=== PATIENT | female | born 1985 | race Caucasian/White ===

== ENCOUNTER 2018-12-22 08:09 | Inpatient (IN) | payer MEDICAID ==
[~2018-12-22] VITALS: Ht 160 cm; Wt 108.9 kg
[2018-12-22] MEDS ORDERED: LACTATED RINGERS 1,000 ML IV SCH (08:30)
[2018-12-22] MEDS: LACTATED RINGERS 1,000 ML IV SCH (09:00)
[2018-12-22] MEDS ORDERED: DEXT 5%/LR + PITOCIN 20UNITS/L 1,000 ML IV SCH (10:03)
[2018-12-22] MEDS ORDERED: NALOXONE HCL 0.4 MG/ML 1ML VIAL IM PRN (10:15)
[2018-12-22] MEDS ORDERED: METHYLERGONOVINE MALEATE 0.2 MG/ML IM PRN (10:15)
[2018-12-22] MEDS ORDERED: CARBOPROST TROMETHAMINE 250 MCG/ML AMPUL IM PRN (10:15)
[2018-12-22] MEDS ORDERED: LIDOCAINE HCL 1% 20ML VIAL (Pyxis) INJ INFIL SCH (10:15)
[2018-12-22 10:27] LABS: BASOPHILS % 0.2 % (0.0-2.0); EOSINOPHILS % 1.3 % (0.0-5.0); HEMATOCRIT. 33.6 % (36.0-48.0); HEMOGLOBIN. 11.3 g/dL (12.0-16.0); LYMPHOCYTES % 15.7 % (20.0-50.0); MEAN CORPUSCULAR HEMOGLOBIN 29.9 pg (28.0-32.0); MEAN CORPUSCULAR VOLUME 88.7 fL (81.0-99.0); MEAN PLATELET VOLUME 7.7 fl (7.4-10.4); MONOCYTES % 6.9 % (2.0-8.0); NEUTROPHILS % 75.9 % (40.0-76.0); PLATELET 303 x1000/uL (130-400); RED BLOOD CELL COUNT 3.79 mill/uL (4.2-5.4); RED CELL DISTRIBUTION WIDTH 13.8 % (11.6-14.6)
[2018-12-22 10:35] LABS: CLARITY URINE CLEAR (CLEAR); COLOR URINE YELLOW (YELLOW); KETONES URINE NEGATIVE (NEGATIVE); LEUKOCYTE ESTERASE URINE NEGATIVE (NEGATIVE); NITRITE URINE NEGATIVE (NEGATIVE); OCCULT BLOOD URINE TRACE (NEGATIVE); PROTEIN URINE 1+ (NEGATIVE); UROBILINOGEN URINE 0.2 E.U./dL (0.2-1.0)
[2018-12-22 10:36] LABS: INR 0.9; PARTIAL THROMBOPLASTIN TIME 25.2 sec (23.4-31.0); PROTHROMBIN TIME 9.8 sec (9.6-11.0)
[2018-12-22 10:50] LABS: *AMPHETAMINES SCREEN URINE NEGATIVE (NEGATIVE); *BARBITURATES SCREEN URINE NEGATIVE (NEGATIVE); *BENZODIAZEPINES SCREEN URINE NEGATIVE (NEGATIVE); *COCAINE SCREEN URINE NEGATIVE (NEGATIVE)
[2018-12-22 10:51] LABS: CANNABINOID URINE SCREEN NEGATIVE (NEGATIVE); METHADONE URINE SCREEN NEGATIVE (NEGATIVE); OPIATES URINE SCREEN NEGATIVE (NEGATIVE); PHENCYCLIDINE URINE SCREEN NEGATIVE (NEGATIVE)
[2018-12-22] MEDS ORDERED: MAGNESIUM 4 G PREMIX 100 ML IV NR (11:00)
[2018-12-22] MEDS: BETAMETHASONE ACET/BETAMET 30 MG/5 ML VIAL IM NR (11:31)
[2018-12-22] MEDS: MAGNESIUM 20 G PREMIX (L & D) 500 ML IV SCH (11:31)
[2018-12-22] MEDS: AMPICILLIN 2,000 MG in SODIUM CHLORIDE 0.9% 100 ML IV SCH ×2 (12:15→18:03)
[2018-12-22 12:16] LABS: HEPATITIS B SURFACE ANTIGEN NEGATIVE
[2018-12-22] MEDS: AZITHROMYCIN 500 MG in DEXT 5% WATER 250 ML IV SCH (13:39)
[2018-12-22] MEDS ORDERED: ERYTHROMYCIN 250MG TABLET PO SCH (14:00)
[2018-12-22] MEDS ORDERED: HYDROCODONE/ACETAMINOPHEN 10/325MG TABLET PO NR (20:47)
[2018-12-23] MEDS: AMPICILLIN 2,000 MG in SODIUM CHLORIDE 0.9% 100 ML IV SCH ×3 (00:01→18:07)
[2018-12-23] MEDS: BETAMETHASONE ACET/BETAMET 30 MG/5 ML VIAL IM NR (11:46)
[2018-12-23] MEDS: THROAT LOZENGES-BENZOCAINE/MENTH/CETYLPYRD CL LOZENGES MM PRN (12:09)
[2018-12-23] MEDS: AZITHROMYCIN 500 MG in DEXT 5% WATER 250 ML IV SCH (13:11)
[2018-12-23] MEDS: LACTATED RINGERS 1,000 ML IV SCH (18:08)
[2018-12-23] MEDS: MAGNESIUM 20 G PREMIX (L & D) 500 ML IV SCH (18:33)
[2018-12-23] MEDS ORDERED: ACETAMINOPHEN 325MG TABLET PO NR (20:39)
[2018-12-24] MEDS: AMPICILLIN 2,000 MG in SODIUM CHLORIDE 0.9% 100 ML IV SCH ×2 (00:44→05:53)
[2018-12-24] MEDS: THROAT LOZENGES-BENZOCAINE/MENTH/CETYLPYRD CL LOZENGES MM PRN ×2 (01:53→07:21)
[2018-12-24] MEDS ORDERED: HYDROCODONE/ACETAMINOPHEN 10/325MG TABLET PO ONE (04:45)
[2018-12-24] MEDS ORDERED: HYDROCODONE/ACETAMINOPHEN 10/325MG TABLET PO NR (04:49)
[2018-12-24] MEDS ORDERED: ERYTHROMYCIN 250MG TABLET PO SCH (06:00)
[2018-12-24] MEDS: AZITHROMYCIN 500 MG TABLET PO SCH (08:57)
[2018-12-24 09:11] LABS: HEMATOCRIT 32.5 % (36.0-48.0); HEMOGLOBIN 10.8 g/dL (12.0-16.0); MEAN CORPUSCULAR HEMOGLOBIN 29.5 pg (28.0-32.0); MEAN CORPUSCULAR VOLUME 88.7 fL (81.0-99.0); PLATELET 330 x1000/uL (130-400); RED BLOOD CELL COUNT 3.66 mill/uL (4.2-5.4); RED CELL DISTRIBUTION WIDTH 13.8 % (11.6-14.6)
[2018-12-24] MEDS: AMOXICILLIN 250MG CAPSULE PO SCH ×2 (13:54→23:31)
[2018-12-24] MEDS ORDERED: ZOLPIDEM TARTRATE 5MG TABLET PO NR (21:00)
[2018-12-24] MEDS: ERYTHROMYCIN 250MG CAPSULE DR PO SCH (23:31)
[2018-12-25] MEDS: LACTATED RINGERS 1,000 ML IV SCH (04:42)
[2018-12-25] MEDS: ERYTHROMYCIN 250MG CAPSULE DR PO SCH ×3 (13:35→21:54)
[2018-12-25] MEDS: AMOXICILLIN 250MG CAPSULE PO SCH ×3 (13:35→21:53)
[2018-12-25] MEDS: AZITHROMYCIN 500 MG TABLET PO SCH (13:39)
[2018-12-25] MEDS: ACETAMINOPHEN 500MG TABLET PO PRN (16:49)
[2018-12-25] MEDS: LOPERAMIDE HCL 2MG CAPSULE PO PRN (16:49)
[2018-12-26] MEDS: ACETAMINOPHEN 500MG TABLET PO PRN ×2 (06:09→13:46)
[2018-12-26] MEDS: AMOXICILLIN 250MG CAPSULE PO SCH ×3 (06:10→21:45)
[2018-12-26] MEDS: ERYTHROMYCIN 250MG CAPSULE DR PO SCH ×3 (06:11→21:44)
[2018-12-26] MEDS: LOPERAMIDE HCL 2MG CAPSULE PO PRN ×2 (06:12→18:00)
[2018-12-26 06:27] LABS: BASOPHILS % 0.5 % (0.0-2.0); EOSINOPHILS % 1.8 % (0.0-5.0); HEMATOCRIT. 33.6 % (36.0-48.0); LYMPHOCYTES % 16.9 % (20.0-50.0); MEAN CORPUSCULAR HEMOGLOBIN 29.2 pg (28.0-32.0); MEAN PLATELET VOLUME 7.2 fl (7.4-10.4); MONOCYTES % 6.9 % (2.0-8.0); NEUTROPHILS % 73.9 % (40.0-76.0); PLATELET 305 x1000/uL (130-400); RED BLOOD CELL COUNT 3.78 mill/uL (4.2-5.4)
[2018-12-26] MEDS: AZITHROMYCIN 500 MG TABLET PO SCH (09:00)
[2018-12-26] MEDS: LACTATED RINGERS 1,000 ML IV SCH (09:20)
[2018-12-26] MEDS ORDERED: DIPHENHYDRAMINE 50MG CAPSULE PO NR (19:15)
[2018-12-26 23:47] LABS: CLARITY URINE CLEAR (CLEAR); COLOR URINE YELLOW (YELLOW); KETONES URINE NEGATIVE (NEGATIVE); LEUKOCYTE ESTERASE URINE 1+ (NEGATIVE); NITRITE URINE NEGATIVE (NEGATIVE); OCCULT BLOOD URINE 2+ (NEGATIVE); PROTEIN URINE NEGATIVE (NEGATIVE); SPECIFIC GRAVITY URINE 1.004 (1.005-1.030); UROBILINOGEN URINE 0.2 E.U./dL (0.2-1.0)
[2018-12-27] MEDS ORDERED: BUTORPHANOL TARTRATE 2 MG/ML VIAL IV PRN ×2 (01:30→01:45)
[2018-12-27] MEDS ORDERED: LIDOCAINE HCL 1% 20ML VIAL (Pyxis) INJ INFIL SCH ×2 (01:34→01:45)
[2018-12-27] MEDS ORDERED: LACTATED RINGERS 1,000 ML IV SCH (01:40)
[2018-12-27] MEDS ORDERED: ROPIVACAINE HCL/PF EPIDURAL 200 ML EPI SCH (01:45)
[2018-12-27] MEDS ORDERED: CITRIC ACID/SODIUM CITRATE SOLN 30ML UDC PO NR (01:45)
[2018-12-27] MEDS ORDERED: DIPHENHYDRAMINE 50MG/ML VIAL IM PRN (01:45)
[2018-12-27] MEDS ORDERED: MISOPROSTOL 100MCG TABLET VG SCH (01:45)
[2018-12-27] MEDS ORDERED: ONDANSETRON HCL 4MG/2ML INJ IV PRN (01:45)
[2018-12-27] MEDS ORDERED: NALOXONE HCL 0.4 MG/ML 1ML VIAL IM PRN (01:45)
[2018-12-27] MEDS: ERYTHROMYCIN 250MG CAPSULE DR PO SCH (05:47)
[2018-12-27] MEDS: AMOXICILLIN 250MG CAPSULE PO SCH (05:47)
[2018-12-27] MEDS ORDERED: DEXT 5%/LR + PITOCIN 20UNITS/L 1,000 ML IV SCH (10:23)
[2018-12-27] MEDS ORDERED: BISACODYL 10MG SUPP PR PRN (10:30)
[2018-12-27] MEDS ORDERED: IBUPROFEN 400MG TABLET PO PRN (10:30)
[2018-12-27] MEDS ORDERED: HEMORRHOIDAL SUPP PR PRN (10:30)
[2018-12-27] MEDS ORDERED: ACETAMINOPHEN WITH CODEINE 300/30MG TABLET PO PRN ×2 (10:30)
[2018-12-27] MEDS ORDERED: GLYCERIN/WITCH HAZEL LEAF MEDICATED PAD TOP PRN (10:30)
[2018-12-27 12:00] VITALS: BP 116/62
[2018-12-27] MEDS: MAGNESIUM/ALUMINUM HYDROXIDE/SIMETHICONE 30ML UDC PO SCH ×3 (12:30→20:43)
[2018-12-27 13:00] VITALS: BP 106/51
[2018-12-27] MEDS: SIMETHICONE 80MG TABLET CHEW PO SCH ×3 (13:00→20:43)
[2018-12-27 16:10] VITALS: BP 124/74
[2018-12-27 19:00] VITALS: BP 98/54
[2018-12-27] MEDS: DOCUSATE SODIUM 100MG CAPSULE PO SCH (20:45)
[2018-12-28 03:50] VITALS: BP 108/58
[2018-12-28 07:11] LABS: BASOPHILS % 0.2 % (0.0-2.0); EOSINOPHILS % 1.3 % (0.0-5.0); HEMATOCRIT. 33.1 % (36.0-48.0); HEMOGLOBIN. 11.1 g/dL (12.0-16.0); LYMPHOCYTES % 13.6 % (20.0-50.0); MEAN CORPUSCULAR HEMOGLOBIN 29.6 pg (28.0-32.0); MEAN CORPUSCULAR VOLUME 87.9 fL (81.0-99.0); MEAN PLATELET VOLUME 7.3 fl (7.4-10.4); MONOCYTES % 5.9 % (2.0-8.0); PLATELET 282 x1000/uL (130-400); RED BLOOD CELL COUNT 3.76 mill/uL (4.2-5.4); RED CELL DISTRIBUTION WIDTH 13.6 % (11.6-14.6)
[2018-12-28 07:54] VITALS: BP 101/54
[2018-12-28] MEDS: MAGNESIUM/ALUMINUM HYDROXIDE/SIMETHICONE 30ML UDC PO SCH ×4 (08:04→21:00)
[2018-12-28] MEDS: FERROUS SULFATE 325MG TABLET PO SCH ×3 (08:05→17:21)
[2018-12-28] MEDS: SIMETHICONE 80MG TABLET CHEW PO SCH ×4 (08:05→21:00)
[2018-12-28] MEDS ORDERED: PRENATAL VIT/FE FUMARATE/FA TABLET PO SCH (09:00)
[2018-12-28 16:05] VITALS: BP 116/51
[2018-12-28] MEDS: DOCUSATE SODIUM 100MG CAPSULE PO SCH (21:00)
[2018-12-28] MEDS: LOPERAMIDE HCL 2MG CAPSULE PO PRN (21:12)
[2018-12-28 22:00] VITALS: BP 103/54
[2018-12-29 06:00] VITALS: BP 101/56
[2018-12-29] MEDS ORDERED: FERR324T4 MT (06:33)
[2018-12-29] MEDS ORDERED: MULT-1146 MT (06:33)
[2018-12-29] MEDS ORDERED: IBUP-2029 MT (06:33)
[2018-12-29 08:00] VITALS: BP 102/43
== END 2018-12-29 18:00 | disposition home or self-care (01) | DRG 560 ==
LOC: 8 EST LDRP 08:09 → OBSVTOIN 08:09 → 8 EST A/PP 12-26 08:00 → 8 EST LDRP 12-27 01:23 → 8EST 12-27 12:28
PROVIDERS: ADMIT Obstetrics & Gynecology; ATTEND Obstetrics & Gynecology
PROC: 10E0XZZ Delivery of Products of Conception, External Approach (ICD-10-PCS; principal; 2018-12-27)
PROC: 3E0R3BZ Introduction of Anesthetic Agent into Spinal Canal, Percutaneous Approach (ICD-10-PCS; 2018-12-27)
PROC: 00HU33Z Insertion of Infusion Device into Spinal Canal, Percutaneous Approach (ICD-10-PCS; 2018-12-27)
DX: O42.913 Preterm premature rupture of membranes, unspecified as to length of time between rupture and onset of labor, third trimester (principal); E66.9 Obesity, unspecified; O99.214 Obesity complicating childbirth; Z37.0 Single live birth; Z3A.28 28 weeks gestation of pregnancy; Z3A.38 38 weeks gestation of pregnancy
CPT/HCPCS: 36415; 76805; 76815; 80305; 81003; 83735; 85027; 86592; 86703; 86762; 86850; 86900; 87340; 88307; 99281; G0378; J0290; J0456; J0595; J0702; J2590; J2795; J3475; J3490; J7050; J7060; J7120; Q0163; A4315

== ENCOUNTER 2020-07-17 16:30 | Emergency (ER) | payer MEDICAID ==
[~2020-07-17] VITALS: Ht 157.5 cm; Wt 105.0 kg
[~2020-07-17 16:30] MED LIST: FERR324T4 MT; IBUP-2029 MT; MULT-1146 MT
[2020-07-17] MEDS ORDERED: ACETAMINOPHEN 325MG TABLET PO STA (19:28)
[2020-07-17 20:13] LABS: BASOPHILS % 0.5 % (0.0-2.0); EOSINOPHILS % 2.2 % (0.0-5.0); HEMATOCRIT. 38.4 % (36.0-48.0); HEMOGLOBIN. 13.3 g/dL (12.0-16.0); LYMPHOCYTES % 38.8 % (20.0-50.0); MEAN CORPUSCULAR HEMOGLOBIN 30.7 pg (28.0-32.0); MEAN CORPUSCULAR VOLUME 88.7 fL (81.0-99.0); MEAN PLATELET VOLUME 7.6 fl (7.4-10.4); MONOCYTES % 7.1 % (2.0-8.0); NEUTROPHILS % 51.4 % (40.0-76.0); PLATELET 270 x1000/uL (130-400); RED BLOOD CELL COUNT 4.33 mill/uL (4.2-5.4); RED CELL DISTRIBUTION WIDTH 12.7 % (11.6-14.6)
[2020-07-17 20:28] LABS: HCG SCREEN NEGATIVE
[2020-07-17 20:30] LABS: CLARITY URINE CLEAR (CLEAR); COLOR URINE YELLOW (YELLOW); KETONES URINE NEGATIVE (NEGATIVE); LEUKOCYTE ESTERASE URINE NEGATIVE (NEGATIVE); NITRITE URINE NEGATIVE (NEGATIVE); OCCULT BLOOD URINE NEGATIVE (NEGATIVE); PROTEIN URINE NEGATIVE (NEGATIVE); SPECIFIC GRAVITY URINE 1.015 (1.005-1.030); UROBILINOGEN URINE 0.2 E.U./dL (0.2-1.0)
[2020-07-17 20:37] LABS: CHLORIDE 106 mEq/L (98-107)
[2020-07-17] MEDS ORDERED: TRAMADOL 50MG TABLET PO ONE (21:00)
[2020-07-17 22:00] VITALS: BP 115/72
== END 2020-07-17 22:15 | disposition left against medical advice (07) ==
LOC: ER 17:06
DX: R10.30 Lower abdominal pain, unspecified (principal); Z90.49 Acquired absence of other specified parts of digestive tract; Z87.11 Personal history of peptic ulcer disease
CPT/HCPCS: 36415; 80053; 81003; 81025; 84703; 85025; 99283

== ENCOUNTER 2021-10-16 07:26 | Emergency (ER) | payer MEDICAID ==
[~2021-10-16] VITALS: Ht 167.6 cm; Wt 125.0 kg
[2021-10-16 07:45] VITALS: BP 129/66
[2021-10-16 09:20] LABS: CLARITY URINE CLOUDY (CLEAR); COLOR URINE YELLOW (YELLOW); KETONES URINE NEGATIVE (NEGATIVE); LEUKOCYTE ESTERASE URINE TRACE (NEGATIVE); NITRITE URINE NEGATIVE (NEGATIVE); OCCULT BLOOD URINE TRACE (NEGATIVE); PH URINE 5.5 (4.5-8.0); PROTEIN URINE NEGATIVE (NEGATIVE); SPECIFIC GRAVITY URINE 1.023 (1.005-1.030); UROBILINOGEN URINE 0.2 E.U./dL (0.2-1.0)
[2021-10-16 09:21] LABS: BASOPHILS % 0.8 % (0.0-2.0); EOSINOPHILS % 3.2 % (0.0-5.0); HEMATOCRIT. 37.2 % (36.0-48.0); HEMOGLOBIN. 12.5 g/dL (12.0-16.0); LYMPHOCYTES % 35.2 % (20.0-50.0); MEAN CORPUSCULAR HEMOGLOBIN 29.4 pg (28.0-32.0); MEAN CORPUSCULAR VOLUME 87.2 fL (81.0-99.0); MEAN PLATELET VOLUME 7.6 fl (7.4-10.4); MONOCYTES % 6.1 % (2.0-8.0); NEUTROPHILS % 54.7 % (40.0-76.0); PLATELET 277 x1000/uL (130-400); RED BLOOD CELL COUNT 4.26 mill/uL (4.2-5.4); RED CELL DISTRIBUTION WIDTH 13.6 % (11.6-14.6)
[2021-10-16 09:23] LABS: CHLORIDE 105 mEq/L (98-107)
== END 2021-10-16 12:19 | disposition home or self-care (01) ==
LOC: ER 07:26
DX: R10.9 Unspecified abdominal pain (principal); Z90.49 Acquired absence of other specified parts of digestive tract; Z98.890 Other specified postprocedural states
CPT/HCPCS: 36415; 76830; 76856; 80053; 81003; 81025; 83690; 85025; 99284; Z7610